=== PATIENT | female | born 1945 | race Caucasian/White ===

== ENCOUNTER 2024-03-10 09:24 | Outpatient (CLI) | payer MEDICARE, BC, SELFPAY | END 2024-03-10 09:25 | disposition home or self-care (01) | LOC: INJ CL 09:28 | PROVIDERS: PCP Internal Medicine; Visit Provider Family Medicine | DX: M54.16 Radiculopathy, lumbar region (principal); M51.369 Other intervertebral disc degeneration, lumbar region without mention of lumbar back pain or lower extremity pain | CPT/HCPCS: 64483; J1100; Q9966 ==

== ENCOUNTER 2024-07-11 09:38 | Outpatient (CLI) | payer MEDICARE, BC, SELFPAY | END 2024-07-11 09:39 | disposition home or self-care (01) | LOC: INJ CL 09:40 | PROVIDERS: PCP Internal Medicine; Visit Provider Family Medicine | DX: M54.16 Radiculopathy, lumbar region (principal); M48.062 Spinal stenosis, lumbar region with neurogenic claudication | CPT/HCPCS: 64483; 64494; J1100; Q9966 ==